=== PATIENT | male | born 1985 | race Two or more races ===

== ENCOUNTER 2022-02-12 13:05 | Emergency (ER) | payer SELFPAY ==
[2022-02-12 15:21] LABS: HEMOGLOBIN 17.4 gm/dl (14.0-17.5); RED BLOOD COUNT 5.22 M/UL (4.20-5.50); WHITE BLOOD COUNT 11.8 K/UL (4.5-11.0)
[2022-02-12 17:02] LABS: BUN/CREATININE RATIO 13 (0-10)
== END 2022-02-12 17:35 | disposition home or self-care (01) ==
LOC: ER1 13:05
PROVIDERS: Preventive Medicine Occupational Medicine
DX: R20.2 Paresthesia of skin (principal); Z20.822 Contact with and (suspected) exposure to COVID-19
CPT/HCPCS: 0240U; 70450; 71045; 80053; 81001; 82607; 82746; 83036; 83605; 83690; 84439; 84443; 85025; 85652; 86140; 99284; G0480